=== PATIENT | male | born 1935 | race Caucasian/White ===

== ENCOUNTER 2016-05-30 17:31 | Inpatient (IN) | payer MEDICARE ==
[~2016-05-30] VITALS: Ht 172.7 cm; Wt 76.0 kg
[2016-05-30] MEDS ORDERED: DEXTROSE 5% 500 ML IV ONE (17:51)
[2016-05-30] MEDS ORDERED: ONDANSETRON 2MG/ML, 2ML IVPush ONE (18:00)
[2016-05-30] MEDS ORDERED: LOVA10TA PO (18:01)
[2016-05-30] MEDS ORDERED: INSU100C5 SQ-INSULIN (18:01)
[2016-05-30] MEDS ORDERED: ONDANSETRON 2MG/ML, 2ML ONE (18:20)
[2016-05-30 18:34] LABS: BLOOD UREA NITROGEN 19 mg/dL (7-18)
[2016-05-30 18:38] LABS: ASPARTATE AMINO TRANSFERASE 35 U/L (15-37)
[2016-05-30] MEDS ORDERED: BISACODYL 10 MG SUPP PR PRN (20:00)
[2016-05-30] MEDS ORDERED: ONDANSETRON 2MG/ML, 2ML IVP PRN (20:00)
[2016-05-30 21:00] VITALS: BP 91/61
[2016-05-30] MEDS: ENOXAPARIN 40 MG/0.4 ML SQ SCH (23:29)
[2016-05-30] MEDS: D5%-0.45NACL+KCL 20MEQ 1,000 ML IV SCH (23:29)
[2016-05-30] MEDS: SODIUM CHLORIDE FLUSH 10ML SYR IVF SCH (23:30)
[2016-05-30] MEDS ORDERED: DEXTROSE 50%, 50ML SYRINGE IVPush PRN (23:30)
[2016-05-30] MEDS ORDERED: DEXTROSE 4 GM TAB.CHEW PO PRN (23:30)
[2016-05-30] MEDS ORDERED: GLUCAGON 1 MG IM PRN (23:30)
[2016-05-31 01:29] VITALS: BP 90/60
[2016-05-31 05:12] LABS: BLOOD UREA NITROGEN 13 mg/dL (7-18)
[2016-05-31 08:08] VITALS: BP 93/56
[2016-05-31] MEDS: SODIUM CHLORIDE FLUSH 10ML SYR IVF SCH ×2 (08:36→21:07)
[2016-05-31] MEDS: ACETAMINOPHEN 325 MG TABLET PO PRN ×2 (08:43→17:29)
[2016-05-31] MEDS: D5%-0.45NACL+KCL 20MEQ 1,000 ML IV SCH (09:30)
[2016-05-31] MEDS ORDERED: SODIUM PHOSPHATE 10 MMOL in SODIUM CHLORIDE 0.9% 500 ML IV ONE (10:00)
[2016-05-31 13:12] VITALS: BP 95/59
[2016-05-31] MEDS: NICOTINE 14MG/24 HR PATCH.TD24 TD SCH (14:10)
[2016-05-31 19:26] VITALS: BP 94/64
[2016-05-31] MEDS: ENOXAPARIN 40 MG/0.4 ML SQ SCH (21:07)
[2016-05-31] MEDS: CALCIUM CARBONATE 500 MG TAB.CHEW PO PRN (22:13)
[2016-06-01 01:27] VITALS: BP 97/64
[2016-06-01 06:46] VITALS: BP 101/68
[2016-06-01] MEDS: SODIUM CHLORIDE FLUSH 10ML SYR IVF SCH (08:55)
[2016-06-01] MEDS: CALCIUM CARBONATE 500 MG TAB.CHEW PO PRN (09:00)
[2016-06-01 12:45] VITALS: BP 95/61
[2016-06-01] MEDS: NICOTINE 14MG/24 HR PATCH.TD24 TD SCH (13:12)
== END 2016-06-01 14:26 | disposition home health service (06) | DRG 638 ==
LOC: ED 18:53 → SUATTDRO 19:28 → EDIP 20:15 → 3NE 20:52
DX: E11.649 Type 2 diabetes mellitus with hypoglycemia without coma (principal); E44.0 Moderate protein-calorie malnutrition; E78.5 Hyperlipidemia, unspecified; K13.0 Diseases of lips; I10 Essential (primary) hypertension; E86.0 Dehydration; Z79.4 Long term (current) use of insulin; I25.2 Old myocardial infarction; Z80.0 Family history of malignant neoplasm of digestive organs; Z87.891 Personal history of nicotine dependence; Z68.25 Body mass index [BMI] 25.0-25.9, adult; Z90.89 Acquired absence of other organs
CPT/HCPCS: 36415; 71010; 80048; 80053; 81003; 82010; 82330; 82947; 82962; 83036; 83735; 84100; 85025; 96361; 96374; J1650; J2405; J3480; J7040; J7060

== ENCOUNTER 2016-11-10 19:57 | Inpatient (IN) | payer MEDICARE ==
[~2016-11-10] VITALS: Ht 172.7 cm; Wt 78.5 kg
[~2016-11-10 19:57] MED LIST: EPINEPHRINE SYRINGE 0.1 MG/ML, 10ML ONE; INSU100C5 SQ-INSULIN; LOVA10TA PO
[2016-11-10] MEDS ORDERED: LISI2.5T PO (20:24)
[2016-11-10] MEDS ORDERED: ALBU18HF INH (20:24)
[2016-11-10] MEDS ORDERED: ALBUTEROL/IPRATROPIUM 2.5MG/0.5MG, 3 ML ONE (20:25)
[2016-11-10 20:30] LABS: HEMATOCRIT 50.3 % (39.2-51.8); HEMOGLOBIN 16.9 g/dL (13.7-18.0); WHITE BLOOD COUNT 13.4 x10^3/uL (3.4-10)
[2016-11-10] MEDS ORDERED: PLEASE ENTER HEIGHT AND WEIGHT MC SCH (20:30)
[2016-11-10] MEDS ORDERED: SODIUM CHLORIDE 0.9% 1,000ML IVBOLUS ONE (20:30)
[2016-11-10] MEDS ORDERED: ALBUTEROL/IPRATROPIUM 2.5MG/0.5MG, 3 ML NPPB ONE (20:30)
[2016-11-10] MEDS ORDERED: MORPHINE SULFATE 4 MG/ML, 1ML IVPush PRN (20:30)
[2016-11-10 20:41] LABS: ASPARTATE AMINO TRANSFERASE 17 U/L (15-37); BLOOD UREA NITROGEN 17 mg/dL (7-18)
[2016-11-10] MEDS ORDERED: MORPHINE SULFATE 4 MG/ML, 1ML ONE (21:05)
[2016-11-10] MEDS ORDERED: CEFTRIAXONE PMX 1GM/50ML 50 ML IV ONE (22:00)
[2016-11-10] MEDS ORDERED: AZITHROMYCIN 500 MG in SODIUM CHLORIDE 0.9% 250 ML IV ONE (22:00)
[2016-11-10] MEDS ORDERED: SODIUM CHLORIDE 0.9% 1,000 ML IV SCH (22:24)
[2016-11-10] MEDS ORDERED: ONDANSETRON ODT 4 MG PO PRN (22:30)
[2016-11-10] MEDS: INSULIN ASPART 100 UNITS/ML, PEN SQ-INSULIN SCH ×2 (22:30→23:00)
[2016-11-10] MEDS ORDERED: morphine SULFATE 10 MG/ML, 1ML IVPush PRN (22:30)
[2016-11-10] MEDS ORDERED: ENOXAPARIN 40 MG/0.4 ML SQ SCH (22:30)
[2016-11-10] MEDS ORDERED: DIPHENHYDRAMINE 25 MG CAPSULE PO PRN (22:30)
[2016-11-10] MEDS ORDERED: ACETAMINOPHEN 325 MG TABLET PO PRN (22:30)
[2016-11-10] MEDS ORDERED: CEFTRIAXONE PMX 1GM/50ML 50 ML ONE (22:38)
[2016-11-10] MEDS ORDERED: LOVASTATIN 40 MG TABLET PO SCH (23:00)
[2016-11-10 23:44] VITALS: BP 108/71
[2016-11-11] VITALS (7 sets, daily range): BP systolic 81–108; BP diastolic 47–71
[2016-11-11] MEDS ORDERED: ALBUTEROL/IPRATROPIUM 2.5MG/0.5MG, 3 ML NPPB PRN (01:00)
[2016-11-11] MEDS: methylPREDNISolone SOD SUCC 125 MG/2 ML IVPush SCH ×2 (01:35→09:08)
[2016-11-11] MEDS ORDERED: FLU VACC QS2016-17 (36MOS+)UP/PF 0.5 ML IM-VACC ONE ×2 (02:30→05:30)
[2016-11-11 05:40] LABS: BLOOD UREA NITROGEN 18 mg/dL (7-18)
[2016-11-11 05:42] LABS: HEMATOCRIT 46.7 % (39.2-51.8); HEMOGLOBIN 15.7 g/dL (13.7-18.0)
[2016-11-11] MEDS: ALBUTEROL/IPRATROPIUM 2.5MG/0.5MG, 3 ML NPPB SCH ×4 (07:05→19:45)
[2016-11-11] MEDS: INSULIN ASPART 100 UNITS/ML, PEN SQ-INSULIN SCH ×4 (07:47→18:01)
[2016-11-11] MEDS: HYDROcodone/APAP 5/325 TABLET PO PRN ×2 (09:17→18:06)
[2016-11-11] MEDS ORDERED: CEFTRIAXONE PMX 1GM/50ML 50 ML IV SCH (10:30)
[2016-11-11] MEDS ORDERED: DOXYCYCLINE 100MG TABLET PO SCH (11:00)
[2016-11-11] MEDS ORDERED: predniSONE 50MG TABLET PO SCH (11:00)
[2016-11-11] MEDS ORDERED: INSULIN DETEMIR 100 UNITS/ML, PEN SQ-INSULIN SCH (11:00)
[2016-11-11] MEDS ORDERED: CEFTRIAXONE PMX 2GM/50ML 50 ML IV SCH (11:00)
[2016-11-11] MEDS ORDERED: TAMSULOSIN 0.4 MG CAP.ER.24H PO SCH (12:00)
[2016-11-11] MEDS ORDERED: SODIUM CHLORIDE 0.9% 1,000 ML IV SCH (18:00)
[2016-11-11] MEDS ORDERED: AMIODARONE 900 MG in DEXTROSE 5% 482 ML IV PRN (20:30)
[2016-11-11] MEDS ORDERED: FILTER 0.22 MICRON IV ONE (20:30)
[2016-11-11] MEDS ORDERED: EPINEPHRINE SYRINGE 0.1 MG/ML, 10ML ONE (20:48)
[2016-11-11] MEDS ORDERED: ATROPINE SYRINGE 0.1 MG/ML, 10ML ONE (20:49)
[2016-11-11] MEDS ORDERED: AMIODARONE 50 MG/ML, 3ML ONE (20:49)
[2016-11-11] MEDS ORDERED: CODE BLUE RESPONSE XX ONE (21:00)
[2016-11-11] MEDS ORDERED: AZITHROMYCIN 500 MG in SODIUM CHLORIDE 0.9% 250 ML IV SCH (22:30)
== END 2016-11-12 03:00 | disposition expired | DRG 871 ==
LOC: ED 20:40 → EDIP 22:12 → 4WST 11-11 00:03
PROVIDERS: ADMIT Internal Medicine; ATTEND Internal Medicine
DX: A41.9 Sepsis, unspecified organism (principal); J96.01 Acute respiratory failure with hypoxia; J90 Pleural effusion, not elsewhere classified; J15.9 Unspecified bacterial pneumonia; J44.0 Chronic obstructive pulmonary disease with (acute) lower respiratory infection; S22.42XA Multiple fractures of ribs, left side, initial encounter for closed fracture; E11.65 Type 2 diabetes mellitus with hyperglycemia; I11.9 Hypertensive heart disease without heart failure; I70.0 Atherosclerosis of aorta; E78.00 Pure hypercholesterolemia, unspecified; W18.39XA Other fall on same level, initial encounter; E78.5 Hyperlipidemia, unspecified; I25.10 Atherosclerotic heart disease of native coronary artery without angina pectoris; N28.89 Other specified disorders of kidney and ureter; N40.0 Benign prostatic hyperplasia without lower urinary tract symptoms; Z79.4 Long term (current) use of insulin; Z80.0 Family history of malignant neoplasm of digestive organs; Z87.891 Personal history of nicotine dependence; Y93.89 Activity, other specified; Y92.098 Other place in other non-institutional residence as the place of occurrence of the external cause; Y99.8 Other external cause status
CPT/HCPCS: 36415; 71250; 74176; 80048; 80053; 80061; 81003; 82962; 83036; 83605; 84145; 85025; 85610; 85730; 87040; 92950; 93005; 94640; 96361; 96374; C8929; J0456; J0461; J0696; J1650; J1815; J7620; J0282; J2930; J7030; J7050; J7512